=== PATIENT | female | born 1995 | race African-American/Black ===

== ENCOUNTER 2022-08-08 11:44 | Emergency (ER) | payer MEDICAID, OTHER ==
[~2022-08-08] VITALS: Ht 170.2 cm; Wt 88.0 kg
[2022-08-08 11:56] VITALS: BP 132/81; PULSE 101; RESP 18; TEMP 97.8; O2SAT 97
[2022-08-08 12:18] LABS: BASOPHILS % 0.2 % (0.0-2.0); EOSINOPHILS % 0.1 % (0.0-5.0); HEMATOCRIT. 40.8 % (36.0-48.0); HEMOGLOBIN. 14.6 g/dL (12.0-16.0); LYMPHOCYTES % 27.6 % (20.0-50.0); MEAN CORPUSCULAR VOLUME 92.3 fL (81.0-99.0); MONOCYTES % 6.8 % (2.0-8.0); NEUTROPHILS % 65.3 % (40.0-76.0); PLATELET 346 x1000/uL (130-400); RED BLOOD CELL COUNT 4.42 mill/uL (4.2-5.4); RED CELL DISTRIBUTION WIDTH 13.3 % (11.6-14.6)
[2022-08-08 12:30] LABS: CHLORIDE 106 mEq/L (98-107)
[2022-08-08 12:53] LABS: B-HCG QUANTITATIVE 8871 mIU/mL (<3)
[2022-08-08 12:55] LABS: CLARITY URINE CLEAR (CLEAR); COLOR URINE YELLOW (YELLOW); KETONES URINE 3+ (NEGATIVE); LEUKOCYTE ESTERASE URINE NEGATIVE (NEGATIVE); NITRITE URINE NEGATIVE (NEGATIVE); OCCULT BLOOD URINE NEGATIVE (NEGATIVE); PROTEIN URINE NEGATIVE (NEGATIVE); SPECIFIC GRAVITY URINE 1.017 (1.005-1.030)
[2022-08-08] MEDS ORDERED: ONDA4TAB50 PO (14:24)
[2022-08-08] MEDS ORDERED: POTA-202 PO (14:24)
== END 2022-08-08 14:49 | disposition home or self-care (01) ==
LOC: ER 11:44
DX: O26.91 Pregnancy related conditions, unspecified, first trimester (principal); E87.6 Hypokalemia; Z3A.01 Less than 8 weeks gestation of pregnancy
CPT/HCPCS: 36415; 76801; 80053; 81003; 81025; 84702; 85025; 99284